=== PATIENT | female | born 2000 | race Caucasian/White ===

== ENCOUNTER 2021-08-12 18:20 | Emergency (ER) | payer SELFPAY ==
[~2021-08-12] VITALS: Ht 157.5 cm; Wt 76.0 kg
[2021-08-12 18:42] VITALS: BP 121/82
[2021-08-12] MEDS ORDERED: PREDNISONE 20MG TABLET PO ONE (19:30)
[2021-08-12] MEDS ORDERED: AMOXICILLIN 500 MG CAPSULE PO ONE (19:30)
[2021-08-12] MEDS ORDERED: AM250 PO (19:32)
== END 2021-08-12 20:44 | disposition home or self-care (01) ==
LOC: ER 18:20
DX: J03.90 Acute tonsillitis, unspecified (principal); R06.00 Dyspnea, unspecified
CPT/HCPCS: 99283; J7512